=== PATIENT | female | born 1965 | race Caucasian/White ===

== ENCOUNTER 2020-01-27 15:45 | Outpatient (RCR) | payer OTHER, SELFPAY ==
--- NOTE | 2019-11-05 17:14 | PTOPEVAL ---
PHYSICAL THERAPY EVALUATION AND PLAN OF CARE 11-05-19 The PT evaluation was completed today. Plan of treatment is set for 1-2 x/week for 5 weeks, on land and in the water. Thank you for referring Mrs. Mcqueen to [facility]. Please review, sign, date and return this plan of care TERA. I agree with and certify that the following plan of care is medically necessary. Referring Physician Date Attending Provider: Yemi Hull MD *PT Outpatient Evaluation Start: 11/05/19 16:11 Document 11/05/19 16:05 MANOLO (Rec: 11/05/19 17:14 MANOLO [id number]) Therapy Assessment Status Assessment Status Assessment Status Evaluation Outpatient Past Medical History Neurological History Hx Neurological Disorders No Significant History Cardiovascular History Hx Hypertension Yes: med control Respiratory History Hx Respiratory Disorders No Significant History Gastrointestinal History Hx Gastrointestinal Disorders No Significant History Genitourinary History Hx Other Genitourinary Disorders Yes: on meds for bladder control Musculoskeletal History Hx Back Pain Yes Hx Orthopedic Surgery Yes: L TKR '09; Hx Other Musculoskeletal Disorders Yes: B hip pain; 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 Hematological History Hx Hematological Disorders No Significant History Endocrine History Hx Endocrine Disorders No Significant History HEENT History Hx HEENT Disorders No Significant History Integumentary History Hx Skin Disorders No Significant History Pain History Has Past Pain Affected Your Daily Life Yes History of Long-Term Prescription Pain Yes Medication Use (Opiates) Other History Hx Other Medical Conditions Yes: obese, 299# reported by pt Evaluation Information Problem Diagnosis low back pain Onset past year worse Subjective Information gradual increase back and B Query Text:As Reported By Patient/ hip pain; see pain management- Family -they attempted ablation R hip - did not take ; manage with meds; Diagnostic Tests X-Rays For This Problem Yes: severe lumbar spondylosis , dextroscoliosis MRI For This Problem No: not had for over 2 years Previous Treatments Previous Treatments For This Problem in past,PT several years ago; chiropractor- stim,back mobiliz;stim helped Prior Level of Function Activity Level (Last 3 Months) 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
--- NOTE | 2019-12-18 15:47 | PCPTNOTE ---
pt called and canceled today's reevaluation;
--- NOTE | 2019-12-23 16:28 | PCPTNOTE ---
Patient did not show up for scheduled appointment this date.
--- NOTE | 2019-12-27 16:46 | PTOPEVAL ---
PHYSICAL THERAPY RE-EVALUATION AND UPDATED PLAN OF CARE 12-27-2019 Mrs. Mcqueen has received 8 Physical Therapy sessions, from November 05 to today, for the diagnosis of low back pain. She has had 6 sessions in the water for exercises. She reports they have helped her pain and motion, but she has not been here for the past 2 weeks, due to scheduling issues on her part and the therapy staff. Her time frames are limited in availability due to her work and other appointments. Compared to the initial evaluation, she has made slight gains with increased walking tolerance, and increased hip IR and adduction ranges. PT is to continue 2x/week for 5 weeks, for aquatic exercises to increase her strength and mobility of hips, legs and trunk. With education for progression of HEP. Thank you for referring Manasa to [facility]. Please review, sign, date and return this plan of care TERA. I agree with and certify that the following plan of care is medically necessary. Referring Physician Date Attending Provider: Yemi Hull MD *PT Outpatient Re-Evaluation Document 12/27/19 15:45 MANOLO (Rec: 12/27/19 16:46 MANOLO [id number]) Subjective Information Manasa Reports: pain management Query Text:As Reported By Patient/ dr has changed her meds- took Family her off morphine and on hydrocodone- difficulty with the change; last week she was ill with streph throat; really likes the pool- feels like she was moving better and muscles more relaxed; and wants to continue therapy. Pain Assessment Timing of Pain Assessment Timing of Pain Assessment Assessment Pain Scale Pain Scale Used Numeric (1 - 10) Self Report Pain Assessment Bilateral Back Reported Pain Level 10 Pain Frequency Chronic,Continuous Current Pain Intensity 10 Lowest Pain Intensity 10 Greatest Pain Intensity 10 Pain Level Goal 5 Other Alleviating Interventions feels the water decreased her pain, but has not been here for 2 weeks Additional Pain Comments pain has been worse since change in meds; then was ill with streph Pain Score Pain Score 10: Self Report Lower Extremity Range of Motion General Lower Extremity Range of Motion Gross Lower Extremity Range of Motion in sitting:YUOM: hip flexion Comments R 75'/ L 70'; hip IR with knee flex 90': R (-20')/ L (- 10'); hip adduction R 10'/ L 10'; discussed with her to perform supine hip IR/ER and
--- NOTE | 2020-01-15 16:13 | PCPTNOTE ---
Patient did not show up for scheduled appointment this date.
--- NOTE | 2020-01-17 15:39 | PCPTNOTE ---
Patient called & cancelled scheduled appointment this date due to illness
--- NOTE | 2020-01-21 17:47 | PCPTNOTE ---
Patient called & cancelled scheduled appointment this date due to being unable to make it.
--- NOTE | 2020-01-30 14:29 | PCPTNOTE ---
pt called and canceled today's reevaluation; called pt and left message on her phone re: to check on her and see if she wants to continue PT or not, has only been here once since last reeval 12-27-2019;
--- NOTE | 2020-02-20 13:30 | PCPTNOTE ---
PHYSICAL THERAPY DISCHARGE 02-20-2020 Attending Provider: Yemi Hull MD Patient:Nhi Mcqueen Date of :1965 Mrs. Mcqueen has not returned for any further treatments since 01/27/2020, therefore she will be discharged from therapy at this time. The goals were not assessed. Refer to the last reevaluation dated 12/27/19 for her status. She received 1 additional treatment after that reevaluation and did not return for any further treatment. Thank you for referring Nhi to [facility]. Please review, sign, date and return this discharge summary TERA. I have been updated about the patient's current status and I agree with discharge from the above service at this time. Referring Physician Date
== END 2020-01-27 23:59 | disposition home or self-care (01) ==
LOC: ANHPT 15:45
PROVIDERS: PCP Family Medicine; Visit Provider Family Medicine
DX: M54.5 Low back pain (principal)
CPT/HCPCS: 97110; 97113; 97162

== ENCOUNTER 2020-02-18 13:38 | Outpatient (RCR) | payer OTHER, SELFPAY | END 2020-02-24 09:31 | disposition home or self-care (01) | LOC: ANHPT 13:38 | PROVIDERS: PCP Family Medicine; Visit Provider Family Medicine | DX: M54.5 Low back pain (principal) | CPT/HCPCS: 99199 ==

== ENCOUNTER 2022-08-15 09:21 | Emergency (ER) | payer OTHER, SELFPAY ==
--- NOTE | ~2022-08-15 | US_ITS ---
EXAMINATION:US venous doppler LE LT INDICATION:Left lower extremity pain. TECHNIQUE: Multiple grayscale, color flow and Doppler images of the left lower extremity deep venous systems were obtained and reviewed. COMPARISON:No prior studies for comparison. FINDINGS: The common femoral, superficial femoral and popliteal veins demonstrate normal respiratory variation, augmentation and compressibility. Color flow is also seen within the posterior tibial, pe roneal are within normal limits. The gastrocnemius and saphenous veins are not visualized. There is s ubcutaneous edema in the lower extremity. IMPRESSION: 1: No lower extremity deep venous thrombosis. Reviewed, dictated and finalized at location A.
[2022-08-15 09:22] VITALS: BP 98/77; PULSE 91; RESP 16; TEMP 36.5; O2SAT 99
--- NOTE | 2022-08-15 10:30 | ED.SKABFB ---
HPI - Skin/Abscess/Foreign Bdy General Chief complaint: Skin/Abscess/Foreign Body Stated complaint: cellulitis Time Seen by Provider: 08/15/22 09:56 Source: patient Mode of arrival: ambulatory Limitations: no limitations History of Present Illness HPI narrative: Patient is a 57 y/o female who presents to the ED with c/o pain, swelling, redness to her left lower extremity. Patient reports she first noticed mild swelling in her left foot 1 week ago. She has since developed worsening swelling and redness from her left foot up to her upper calf. She reports having diffuse pain in the calf and lower leg. She does mention recently having a wound between her first and second toes. She also reports having intermittent fevers over the last week. Denies any nausea, vomiting, chest pain, difficulty breathing, recent long distance travel, history of DVT/PE, hormonal control use. Related Data Home Medications Medication Instructions Recorded Confirmed solifenacin 10 mg tablet (Vesicare) 10 mg PO DAILY 02/19/21 08/02/22 Allergies Allergy/AdvReac Type Severity Reaction Status Date / Time No Known Allergies Allergy Verified 08/15/22 13:52 Review of Systems Review of Systems: CONSTITUTIONAL: Reports intermittent fevers. CARDIOVASCULAR: Denies chest pain. RESPIRATORY: Denies dyspnea. GASTROINTESTINAL: Denies nausea, vomiting. SKIN: Reports swelling and redness to left lower leg. MUSCULOSKELETAL: Reports pain to left lower leg. NEUROLOGIC: Denies tingling, numbness, or weakness. All systems reviewed & are unremarkable except as noted in HPI and below PMFSH Past Medical History Medical History (Updated 08/16/22 @ 13:22 by Yemi Hull MD) Anxiety Candidiasis of breast Depression Dysuria Essential (primary) hypertension Excessive cerumen in left ear canal Fever blister Frequent urination Mixed hyperlipidemia Total cholesterol 188, triglycerides 93, HDL 54 and LDL 117 on 07/30/2022. Obstructive sleep apnea (adult) (pediatric) Restless legs syndrome Iron studies normal with iron 57, 18% saturation and ferritin 100 on 07/30/2022. Surgical History Surgical History (Updated 08/15/22 @ 10:35 by Leslie Bautista PA-C) History of section History of left knee replacement Family History Family History (Updated 06/18/19 @ 13:56 by DOCTOR UNKNOWN) Father Patient's father is , Onset Age: 88 Mother Family history of congestive heart failure, Onset Age: 77 Social History Social History Smoking status: Never smoker Alcohol intake: former Substance use: current Substance use type: marijuana Exam Narrative: GENERAL: Well appearing, morbidly obese, non-toxic, in no acute distress. HEAD: Normocephalic, atraumatic. NECK: Supple. No adenopathy, no masses. RESPIRATORY: Airway patent, respirations nonlabored. Clear to auscultation bilaterally, no rales, rhonchi, wheezing. CARDIOVASCULAR: Regular rate and rhythm without murmurs, rubs, or gallops. Pedal pulses 2+ and equal bilaterally. MUSCULOSKELETAL: Moves all extremities. Strength/ROM intact without gross deformities. Pitting edema/swelling of left lower leg including foot, ankle, and most of calf. Circumferential inflammation, erythema, warmth, and tenderness to palpation of left lower leg. No obvious wounds on leg or between toes that I could appreciate, though skin is very dry between toes. No redness or significant swelling of right lower extremity. SKIN: Warm, dry, normal color. No rashes. NEURO: A&O X3. Speech clear. Cranial nerves II-XII grossly intact. Steady gait. No ataxic movements. PSYCHIATRIC: Appropriate mood and affect. Normal interaction. Course Vital Signs Vital signs: Vital Signs Temperature 97.7 F 08/15/22 09:22 Pulse Rate 91 08/15/22 09:22 Respiratory Rate 16 08/15/22 09:22 Blood Pressure 98/77 L 08/15/22 09:22 P
[2022-08-15 10:50] VITALS: BP 128/60; PULSE 80; RESP 18; O2SAT 98
[2022-08-15 10:55] LABS: Basophils Absolute Auto 0.1 K/mm3 (0.0-0.1); Basophils Percent Auto 0.5 % (0.2-1.2); Eosinophils Absolute Auto 0.2 K/mm3 (0-0.3); Eosinophils Percent Auto 1.3 % (0-4.4); Hemoglobin 11.1 g/dL (12.0-15.0); Immature Granulocyte Absolute 0.28 K/mm3 (0.00-0.031); Immature Granulocyte Percent A 2.1 % (0-0.5); Lymphocytes Absolute Auto 1.09 K/mm3 (0.9-3.2); Lymphocytes Percent Auto 8.2 % (18.3-44.2); Mean Corpuscular HGB Conc 32.6 g/dl (32-36); Mean Corpuscular Hemoglobin 32.6 pg (26-34); Mean Platelet Volume 9.7 fl (7.4-10.4); Monocytes Absolute Auto 0.9 K/mm3 (0.1-0.6); Monocytes Percent Auto 6.4 % (2.6-8.5); Neutrophils Absolute Auto 10.9 K/mm3 (1.3-6.7); Neutrophils Percent Auto 81.5 % (45.5-73.1); Platelet Count Result 288 k/mm3 (150-375); White Blood Count 13.3 K/mm3 (4.5-10.0)
[2022-08-15 11:58] LABS: INR 1.2; Prothrombin Time 14.5 Seconds (11.1-14.7)
[2022-08-15 11:59] LABS: Alanine Aminotransferase 37 U/L (6-35); Albumin Level 4.4 g/dL (3.5-5.1); Alkaline Phosphatase 179 U/L (38-126); Anion Gap 13 mmol/L (8-16); Aspartate Amino Transferase 38 U/L (14-36); Bilirubin,Total 0.6 mg/dL (0.2-1.3); Blood Urea Nitrogen 23 mg/dL (7-17); Calcium 9.5 mg/dL (8.4-10.2); Carbon Dioxide 27 mmol/L (22-30); Chloride 96 mmol/L (98-107); Estimated CRCL calculation 74 ml/min; Estimated Glomerular Filt Rate 51; Glucose 121 mg/dL (65-110); Partial Thromboplastin Time 35.9 SECONDS (22.3-36.8); Potassium 4.2 mmol/L (3.4-5.0); Sodium 136 mmol/L (137-145)
[2022-08-15 13:54] LABS: Lactic Acid Reflex 0.9 mmol/L (0.7-2.0)
[2022-08-15] MEDS: SODIUM CHLORIDE 0.9% IV 1,000 ML 999 ML IV CONT (14:18)
== END 2022-08-15 16:15 | disposition home or self-care (01) ==
PROVIDERS: Physician Assistant; Emergency Provider Emergency Medicine; PCP Family Medicine
DX: L03.116 Cellulitis of left lower limb (principal); I10 Essential (primary) hypertension; E78.2 Mixed hyperlipidemia; F41.9 Anxiety disorder, unspecified; F32.A Depression, unspecified; G47.33 Obstructive sleep apnea (adult) (pediatric); G25.81 Restless legs syndrome; Z96.652 Presence of left artificial knee joint
CPT/HCPCS: 36415; 80053; 83605; 85025; 85610; 85730; 87040; 93971; 96360; 96361; 99284; J7030

== ENCOUNTER 2022-08-19 15:42 | Inpatient (IN) | payer OTHER, SELFPAY ==
--- NOTE | ~2022-08-19 | US_ITS ---
US venous doppler [facility] DATE: 08/20/2022 16:13 INDICATION: Left lower extremity swelling TECHNIQUE: Real-time and color flow imaging and Doppler analysis of the veins of the left leg COMPARISON: 08/15/2022 venous duplex examination of the left lower extremity FINDINGS: The greater saphenous vein is patent. There is spontaneous and phasic flow and normal augme ntation and color flow signal and normal compression of the left common femoral, femoral, popliteal a nd posterior tibial veins. The peroneal veins are not visualized. IMPRESSION: Peroneal veins are not visualized; cannot exclude peroneal vein thrombosis; otherwise neg ative examination Reviewed, dictated and finalized at Location A. Reviewed, dictated and finalized at location A. IMPRESSION: Peroneal veins are not visualized; cannot exclude peroneal vein thr ombosis; otherwise negative examination
[2022-08-19 16:17] VITALS: BP 131/66; PULSE 86; RESP 20; TEMP 36.3; O2SAT 97
[2022-08-19 17:45] LABS: Basophils Absolute Auto 0.1 K/mm3 (0.0-0.1); Basophils Percent Auto 0.5 % (0.2-1.2); Eosinophils Absolute Auto 0.1 K/mm3 (0-0.3); Eosinophils Percent Auto 1.2 % (0-4.4); Hematocrit 35.1 % (37.0-47.0); Hemoglobin 11.3 g/dL (12.0-15.0); Immature Granulocyte Absolute 0.13 K/mm3 (0.00-0.031); Immature Granulocyte Percent A 1.1 % (0-0.5); Lymphocytes Absolute Auto 1.56 K/mm3 (0.9-3.2); Lymphocytes Percent Auto 13.4 % (18.3-44.2); Mean Corpuscular HGB Conc 32.2 g/dl (32-36); Mean Corpuscular Hemoglobin 32.4 pg (26-34); Mean Corpuscular Volume 100.6 fl (80-100); Mean Platelet Volume 8.6 fl (7.4-10.4); Monocytes Absolute Auto 0.8 K/mm3 (0.1-0.6); Monocytes Percent Auto 7.2 % (2.6-8.5); Neutrophils Absolute Auto 8.9 K/mm3 (1.3-6.7); Neutrophils Percent Auto 76.6 % (45.5-73.1); Platelet Count Result 333 k/mm3 (150-375); Red Blood Count 3.49 M/mm3 (4.2-5.4); Red Cell Distribution Width 12.4 % (11.5-14.5); White Blood Count 11.7 K/mm3 (4.5-10.0)
--- NOTE | 2022-08-19 17:51 | ED.EXTPRO ---
HPI - Extremity Problem General Chief complaint: Extremity Problem,Nontraumatic <Claudia Broussard PA-C - Last Filed: 08/19/22 21:17> Stated complaint: cellulitis left leg <Claudia Broussard PA-C - Last Filed: 08/19/22 21:17> Time Seen by Provider: 08/19/22 17:31 <Claudia Broussard PA-C - Last Filed: 08/19/22 21:17> Source: patient <RAE Bell Last Filed: 08/19/22 21:17> Mode of arrival: ambulatory <RAE Bell Last Filed: 08/19/22 21:17> Limitations: no limitations <Claudia Broussard PA-C - Last Filed: 08/19/22 21:17> History of Present Illness HPI Narrative: This is a 57 year old female that presents to the ER for left lower extremity redness and swelling ongoing over the last 2 weeks. She is evaluated in our ER for this on Monday and started on cephalexin. She has been taking this as prescribed without relief. Denies fevers. <RAE Bell Last Filed: 08/19/22 21:17> Related Data Home medications: Home Medications Medication Instructions Recorded Confirmed solifenacin 10 mg tablet (Vesicare) 10 mg PO DAILY 02/19/21 08/02/22 <Claudia Broussard PA-C - Last Filed: 08/19/22 21:17> Allergies/Adverse reactions: Allergies Allergy/AdvReac Type Severity Reaction Status Date / Time No Known Allergies Allergy Verified 08/15/22 13:52 <RAE Bell Last Filed: 08/19/22 21:17> Review of Systems Review of Systems: CONSTITUTIONAL: Denies fever SKIN: Reports erythema and edema <RAE Bell Last Filed: 08/19/22 21:17> All systems reviewed & are unremarkable except as noted in HPI and below <RAE Bell Last Filed: 08/19/22 21:17> [facility] Past Medical History Medical History: Medical History (Updated 08/19/22 @ 21:17 by Claudia Broussard PA-C) Anxiety Candidiasis of breast Depression Dysuria Essential (primary) hypertension Excessive cerumen in left ear canal Fever blister Frequent urination Mixed hyperlipidemia Total cholesterol 188, triglycerides 93, HDL 54 and LDL 117 on 07/30/2022. Obstructive sleep apnea (adult) (pediatric) Restless legs syndrome Iron studies normal with iron 57, 18% saturation and ferritin 100 on 07/30/2022. <Claudia Broussard PA-C - Last Filed: 08/19/22 21:17> Surgical History Surgical History: Surgical History (Updated 08/15/22 @ 10:35 by Leslie Bautista PA-C) History of section History of left knee replacement <Claudia Broussard PA-C - Last Filed: 08/19/22 21:17> Family History Family History: Family History (Updated 06/18/19 @ 13:56 by DOCTOR UNKNOWN) Father Patient's father is , Onset Age: 88 Mother Family history of congestive heart failure, Onset Age: 77 <Claudia Broussard PA-C - Last Filed: 08/19/22 21:17> Social History Social History: Social History Smoking status: Never smoker Alcohol intake: former Substance use: current Substance use type: marijuana <Claudia Broussard PA-C - Last Filed: 08/19/22 21:17> Exam Narrative: GENERAL: Well-appearing, well-nourished, and in no acute distress. HEAD: Normocephalic, atraumatic. EYES: EOMI. CHEST: Clear to auscultation. No respiratory distress. No wheezes rales or rhonchi HEART: Regular rate and rhythm. No murmur heard. Normal peripheral pulses. EXTREMITIES: Normal range of motion. Left lower extremity with erythema and edema noted just below the knee to the ankle. Normal DP pulse SKIN: Warm, dry, no rash. NEURO: No focal deficits. Alert and oriented x3. 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 I have had [id number] time with the patient. I discussed need for
[2022-08-19 18:08] LABS: Anion Gap 13 mmol/L (8-16); Blood Urea Nitrogen 26 mg/dL (7-17); CRP 23.3 mg/dL (<1.0); Calcium 9.9 mg/dL (8.4-10.2); Carbon Dioxide 24 mmol/L (22-30); Chloride 96 mmol/L (98-107); Estimated CRCL calculation 74 ml/min; Estimated Glomerular Filt Rate 51; Glucose 106 mg/dL (65-110); Potassium 4.8 mmol/L (3.4-5.0); Sodium 133 mmol/L (137-145)
[2022-08-19 18:19] LABS: Erythrocyte Sedimentation Rate 109 mm/hr (0-20)
[2022-08-19 22:00] VITALS: BP 126/56; PULSE 88; RESP 18; TEMP 35.8; O2SAT 95; BMI 54.0
--- NOTE | 2022-08-19 22:01 | ADMGEN ---
This patient, Nhi Mcqueen, was admitted to 3 [facility] Surg Room 309-01. Patient/family oriented to hospital policies and general routines including ID bracelet, bed and alarms, visiting hours, pain management, procedures, bathroom and other care routines, personal items, smoking policy, room service/diet, and visiting hours. Information on how to activate the Rapid Response Team has been discussed. Patient/Family are encouraged to report perceived risks to care and to ask questions if they do not understand what they are told or what they should do.
[2022-08-19 22:10] VITALS: PULSE 88; RESP 18; O2SAT 95
[2022-08-19 22:36] LABS: SARS-CoV-2 RNA PCR Negative
--- NOTE | 2022-08-19 23:30 | PM.IMHP ---
H&P: HPI History of Present Illness Date/Time: 08/19/22 23:30 Chief Complaint: Worsening left leg cellulitis. Narrative: This is a very pleasant 57-year-old female with hypertension who presented to the ED via private vehicle from home for evaluation of worsening left leg cellulitis. Nearly 10 days ago she first noticed mild swelling and redness in her left foot. She was seen in the ED on 08/15/2022 for worsening swelling and redness extending up the calf. She was diagnosed with cellulitis and discharged on cephalexin. Despite compliance with the antibiotic, the area has not improved much and in fact the erythema has spread. She has a pretty consistent pain in the leg, mostly a burning sensation. She has also been running fevers with a T-max of 103? Fahrenheit several days ago. She is now being admitted for IV antibiotics. She has no open wounds in has no history of cellulitis or multi drug-resistant organisms. She is not having any pain in the left knee, which was replaced several years ago. Review of Systems Review of Systems: Twelve systems were reviewed. No cold or flu symptoms. No chest pain or shortness of breath. No cough. No nausea, vomiting, or diarrhea. She has not been eating well due to canker sores on her tongue which started several days prior to the cellulitis. No blisters, rash, or redness anywhere else aside from the leg. No history of venous thromboembolism. She has lost about 40 pounds in the last 2 months, trying to get her BMI down so she can have her hip replaced due to pain related to arthritis. She typically walks with a walker due to the pain. Except as documented, all other systems were reviewed and are negative. [facility] Past Medical History Medical History (Updated 08/20/22 @ 01:41 by Connie Brandt PA-C) Anxiety Chronic anemia Depression Essential (primary) hypertension Mixed hyperlipidemia Total cholesterol 188, triglycerides 93, HDL 54 and LDL 117 on 07/30/2022. Obstructive sleep apnea She does not use a CPAP. Restless legs syndrome Surgical History Surgical History (Updated 08/15/22 @ 10:35 by Leslie Bautista PA-C) History of section History of left knee replacement Family History Family History Father Patient's father is , Onset Age: 88 Mother Family history of congestive heart failure, Onset Age: 77 Social History Social History (Updated 08/20/22 @ 01:33 by Connie Brandt PA-C) Social History: Surrogate medical decision maker: Mike Mcqueen, spouse. Code status: Full code. Smoking status: Never smoker Alcohol intake: current Drinks per week: 3 Substance use: current Substance use type: marijuana Other substance usage details: Occasional used for sleep. Spiritual care concerns: No Meds Home Medications and Allergies Home Medications Medication Instructions Recorded Confirmed Type solifenacin 10 mg tablet (Vesicare) 10 mg PO HS 02/19/21 08/02/22 History escitalopram oxalate 20 mg tablet 20 mg PO DAILY #90 tabs 07/05/21 08/19/22 Rx fluconazole 150 mg tablet See Rx Instructions PO ONCE #3 tabs 08/03/21 08/02/22 Rx (Diflucan) ropinirole 3 mg tablet 3 mg PO BID #180 tabs 03/10/22 08/19/22 Rx irbesartan 300 1 tablet PO DAILY #90 tabs 07/15/22 08/19/22 Rx mg-hydrochlorothiazide 12.5 mg tablet tirzepatide 2.5 mg/0.5 mL 2.5 mg (0.5 mL) subcut WEEKLY 4 08/02/22 08/19/22 Rx subcutaneous pen injector weeks #2 mL (Mounjaro) duloxetine 60 mg capsule,delayed 60 mg PO DAILY 08/19/22 08/19/22 History release mirabegron 50 mg tablet,extended 50 mg PO HS 08/19/22 08/19/22 History release 24 hr (Myrbetriq) naproxen 500 mg tablet (Naprosyn) 500 mg PO BID 08/19/22 08/19/22 History Allergies Allergy/AdvReac Type Severity Reaction Status Date / Time No Known Allergies Allergy Verified 08/15/22 13:52 Vital Signs Vital Signs - 24
[2022-08-20 06:00] VITALS: BP 121/52; PULSE 84; RESP 18; TEMP 36.1; O2SAT 94
[2022-08-20 06:52] LABS: Hematocrit 32.3 % (37.0-47.0); Hemoglobin 10.2 g/dL (12.0-15.0); Mean Corpuscular HGB Conc 31.6 g/dl (32-36); Mean Corpuscular Volume 101.3 fl (80-100); Mean Platelet Volume 8.8 fl (7.4-10.4); Platelet Count Result 312 k/mm3 (150-375); Red Blood Count 3.19 M/mm3 (4.2-5.4); Red Cell Distribution Width 12.4 % (11.5-14.5); White Blood Count 10.1 K/mm3 (4.5-10.0)
[2022-08-20 07:05] LABS: Alanine Aminotransferase 23 U/L (6-35); Alkaline Phosphatase 142 U/L (38-126); Anion Gap 12 mmol/L (8-16); Aspartate Amino Transferase 27 U/L (14-36); Bilirubin,Total 0.4 mg/dL (0.2-1.3); Blood Urea Nitrogen 22 mg/dL (7-17); Calcium 9.3 mg/dL (8.4-10.2); Carbon Dioxide 26 mmol/L (22-30); Chloride 96 mmol/L (98-107); Estimated CRCL calculation 81 ml/min; Estimated Glomerular Filt Rate 57; Glucose 114 mg/dL (65-110); Sodium 134 mmol/L (137-145)
[2022-08-20] MEDS: ACETAMINOPHEN 325 MG TABLET 650 MG PO (08:06)
[2022-08-20] MEDS: ENOXAPARIN 40 MG/0.4 ML SYRINGE SUB-Q (08:07)
[2022-08-20] MEDS: CHLORHEXIDINE GLUCONATE 0.12% ORAL RINSE 473 ML BTL (*BKC) 15 ML SWISH/SPIT ×2 (08:12→17:20)
[2022-08-20] MEDS: ESCITALOPRAM OXALATE 10 MG TABLET 20 MG PO (12:17)
[2022-08-20] MEDS: rOPINIRole HCL 1 MG TABLET 3 MG PO ×2 (12:17→17:19)
[2022-08-20] MEDS: DULoxetine HCL 60 MG CAPSULE.DR PO (12:17)
[2022-08-20] MEDS: hydroCHLOROthiazide 12.5 MG CAPSULE PO (12:18)
[2022-08-20] MEDS: IRBESARTAN 150 MG TABLET 300 MG PO (12:18)
--- NOTE | 2022-08-20 13:28 | PM.IMPN ---
Progress Note: A&P Assessment and Plan (1) Cellulitis of left leg: Code(s): L03.116 - Cellulitis of left lower limb Status: Acute Assessment and Plan: - Continue Vanc and Ancef. - Trend labs and VS. - Blood cultures pending (2) Aphthous ulcer of tongue: Code(s): K12.0 - Recurrent oral aphthae Status: Acute Assessment and Plan: - Continue oral hygiene with mouthwash. (3) Essential (primary) hypertension: Code(s): I10 - Essential (primary) hypertension Status: Acute Assessment and Plan: - Stable BP. COntinue BP meds and monitor BP (4) Chronic anemia: Code(s): D64.9 - Anemia, unspecified Status: Acute Assessment and Plan: - Stable Hgb at 10.2. - Continue to monitor daily labs - No overt bleeding. (5) Restless leg syndrome: Code(s): G25.81 - Restless legs syndrome Status: Acute Assessment and Plan: - Continue Ropinirole. Time Spent With Patient Time with patient: 15 - 25 minutes Subjective Date/time seen: 08/20/22 0905 This pt. was examined at the bedside in interval assessment after being admitted to the hospital for cellulitis of her LLE after failing outpatient therapy. She is receiving Vancomycin and Ancef. She has not had any further fevers. Blood cultures are pending. She has no CP, dyspnea, N/V/D, headache. Review of Systems Review of Systems: All systems reviewed & are unremarkable except as noted in HPI and below Exam Const: General: uncomfortable Other: Obese, female patient sitting up in bed at this time in no acute distress. HENMT: Mouth: Yes moist mucous membranes Eyes: General: appearance normal, both eyes and all related structures Sclera: sclerae normal Pupils: Equal, round and reactive pupils present Neck: Neck: supple and no JVD Lymphatic: lymphadenopathy not noted Resp: Effort & Inspection: normal respiratory effort Auscultation: clear to auscultation bilaterally Cardio: Rate: regular rate Rhythm: regular rhythm Heart sounds: no gallops, no murmurs and no rubs GI: Inspection: non-distended GI Palp: Yes Soft to palpation, No Tenderness to palpation present (GI) and No Guarding due to palpation present (GI) Auscultation: normal bowel sounds Skin: General skin exam: erythema (LLE red and hot to the touch anteriorly ) Lesions: no lesions noted Rashes: no rashes noted Wounds: no wounds Neuro: General: gait normal Speech: normal speech Motor exam (neuro): 5/5 motor strength present throughout and Normal motor muscle tone present throughout Sensory Exam: normal sensation Extrem: General: normal to inspection, no edema and no pedal edema Other: FROM actively and passively without any deficits. Psych: Mental Status: mental status grossly normal Affect: normal affect Objective Data Vital Signs Vital Signs: Vital Signs - 24 hr 08/19/22 16:17 08/19/22 22:00 08/19/22 22:10 Temperature 97.3 F L 96.5 F L Pulse Rate 86 88 88 Respiratory Rate 20 18 18 Blood Pressure 131/66 126/56 L Pulse Oximetry 97 95 95 Oxygen Delivery Room Air Room Air 08/20/22 06:00 08/20/22 08:00 Temperature 97.0 F L Pulse Rate 84 Respiratory Rate 18 Blood Pressure 121/52 L Pulse Oximetry 94 Oxygen Delivery Room Air Intake/Output Intake/Output: Intake & Output 08/17/22 08/18/22 08/19/22 08/20/22 23:59 23:59 23:59 23:59 Intake Total 250 1500 Balance 250 1500 Meds/Results Medications: Active Medications Generic Name Dose Route Start Last Admin Trade Name Bismarkq PRN Reason Stop Dose Admin Acetaminophen 650 mg 08/20/22 01:42 08/20/22 08:06 Acetaminophen 325 Mg Tablet PO 650 mg Q6H PRN Administration Mild Pain (1-3) or Fever Chlorhexidine Gluconate 15 ml 08/20/22 09:00 08/20/22 08:12 Chlorhexidine Gluconate 0.12% Oral Rinse 473 Ml Btl (*Bkc) SWISH/SPIT 15 ml BID FELICITAS Administration Duloxetine HCl 60 mg 08/20/22 11:00 08/20/22 12:17
[2022-08-20 14:00] VITALS: BP 103/43; PULSE 82; RESP 16; TEMP 36.4; O2SAT 93
[2022-08-20] MEDS: ACETAMINOPHEN/CODEINE (*CRX) 300/30 MG TABLET 1 TAB PO ×2 (14:28→22:31)
[2022-08-20] MEDS: MIRABEGRON 50 MG ER TABLET PO (21:21)
[2022-08-20 22:00] VITALS: BP 115/51; PULSE 81; RESP 18; TEMP 36.3; O2SAT 95
[2022-08-21 06:00] VITALS: BP 127/65; PULSE 86; RESP 19; TEMP 36.2; O2SAT 95
[2022-08-21] MEDS: ACETAMINOPHEN/CODEINE (*CRX) 300/30 MG TABLET 1 TAB PO ×3 (06:40→22:12)
[2022-08-21 06:45] LABS: Basophils Absolute Auto 0.1 K/mm3 (0.0-0.1); Basophils Percent Auto 0.6 % (0.2-1.2); Eosinophils Absolute Auto 0.1 K/mm3 (0-0.3); Eosinophils Percent Auto 1.3 % (0-4.4); Hematocrit 34.3 % (37.0-47.0); Lymphocytes Absolute Auto 1.67 K/mm3 (0.9-3.2); Lymphocytes Percent Auto 16.4 % (18.3-44.2); Mean Corpuscular HGB Conc 32.1 g/dl (32-36); Mean Corpuscular Hemoglobin 32.2 pg (26-34); Mean Corpuscular Volume 100.3 fl (80-100); Mean Platelet Volume 8.7 fl (7.4-10.4); Monocytes Absolute Auto 0.8 K/mm3 (0.1-0.6); Monocytes Percent Auto 7.5 % (2.6-8.5); Neutrophils Absolute Auto 7.5 K/mm3 (1.3-6.7); Neutrophils Percent Auto 73.2 % (45.5-73.1); Platelet Count Result 390 k/mm3 (150-375); Red Blood Count 3.42 M/mm3 (4.2-5.4); Red Cell Distribution Width 12.3 % (11.5-14.5); White Blood Count 10.2 K/mm3 (4.5-10.0)
[2022-08-21 07:02] LABS: Alanine Aminotransferase 27 U/L (6-35); Albumin Level 4.3 g/dL (3.5-5.1); Alkaline Phosphatase 159 U/L (38-126); Anion Gap 14 mmol/L (8-16); Aspartate Amino Transferase 40 U/L (14-36); Bilirubin,Total 0.6 mg/dL (0.2-1.3); Blood Urea Nitrogen 23 mg/dL (7-17); Calcium 9.8 mg/dL (8.4-10.2); Carbon Dioxide 24 mmol/L (22-30); Chloride 97 mmol/L (98-107); Estimated CRCL calculation 81 ml/min; Estimated Glomerular Filt Rate 57; Glucose 108 mg/dL (65-110); Magnesium 2.2 mg/dL (1.6-2.3); Potassium 4.3 mmol/L (3.4-5.0); Sodium 135 mmol/L (137-145)
[2022-08-21] MEDS: CHLORHEXIDINE GLUCONATE 0.12% ORAL RINSE 473 ML BTL (*BKC) 15 ML SWISH/SPIT ×2 (08:58→17:49)
[2022-08-21] MEDS: ENOXAPARIN 40 MG/0.4 ML SYRINGE SUB-Q (08:59)
[2022-08-21] MEDS: hydroCHLOROthiazide 12.5 MG CAPSULE PO (08:59)
[2022-08-21] MEDS: FLUTICASONE PROPIONATE 0.05% NA SPR 16 GM BTL (*BKC) 2 SPRAY NASAL (08:59)
[2022-08-21] MEDS: IRBESARTAN 150 MG TABLET 300 MG PO (09:00)
[2022-08-21] MEDS: ESCITALOPRAM OXALATE 10 MG TABLET 20 MG PO (09:00)
[2022-08-21] MEDS: rOPINIRole HCL 1 MG TABLET 3 MG PO ×2 (09:00→21:16)
[2022-08-21] MEDS: DULoxetine HCL 60 MG CAPSULE.DR PO (09:00)
--- NOTE | 2022-08-21 12:04 | PM.IMPN ---
Progress Note: A&P Assessment and Plan (1) Cellulitis of left leg: Code(s): L03.116 - Cellulitis of left lower limb Status: Acute Assessment and Plan: - Continue Vanc and Ancef. - Trend labs and VS. - Blood cultures pending - There is noted interval improvement. Continue to monitor labs, vital signs and perform interval assessment left lower extremity. (2) Aphthous ulcer of tongue: Code(s): K12.0 - Recurrent oral aphthae Status: Acute Assessment and Plan: - Continue oral hygiene with mouthwash. - Patient reports this issue is resolving nicely. (3) Essential (primary) hypertension: Code(s): I10 - Essential (primary) hypertension Status: Acute Assessment and Plan: - Stable BP. COntinue BP meds and monitor BP (4) Chronic anemia: Code(s): D64.9 - Anemia, unspecified Status: Acute Assessment and Plan: - Stable Hgb at 10.2. - Continue to monitor daily labs - No overt bleeding. (5) Restless leg syndrome: Code(s): G25.81 - Restless legs syndrome Status: Acute Assessment and Plan: - Continue Ropinirole. Time Spent With Patient Time with patient: 15 - 25 minutes Subjective Date/time seen: 08/21/22 0915 This patient was examined at the bedside today in interval assessment. She is evaluated for interval change of her cellulitis of her left lower extremity. Patient reports today that she feels as though it is getting better. She reports that she has less pain and she believes the redness is starting to recede. She has been afebrile over the evening. Toradol was added to her medication regimen for a total of 4 doses for additional pain control. She has no new complaints of chest pain, dyspnea, nausea, vomiting, diarrhea, headache, lightheadedness, dizziness, fatigue or urinary complaints. She remains on vanc and cefepime blood cultures are preliminarily negative. Review of Systems Review of Systems: All systems reviewed & are unremarkable except as noted in HPI and below Exam Const: General: comfortable and no acute distress Other: Obese, female patient sitting up in bed at this time in no acute distress. HENMT: Mouth: Yes moist mucous membranes Eyes: General: appearance normal, both eyes and all related structures Sclera: sclerae normal Pupils: Equal, round and reactive pupils present Neck: Neck: supple and no JVD Lymphatic: lymphadenopathy not noted Resp: Effort & Inspection: normal respiratory effort Auscultation: clear to auscultation bilaterally Cardio: Rate: regular rate Rhythm: regular rhythm Heart sounds: no gallops, no murmurs and no rubs GI: Inspection: non-distended Auscultation: normal bowel sounds Skin: General skin exam: erythema (LLE red and hot to the touch anteriorly ) Lesions: no lesions noted Rashes: no rashes noted Wounds: no wounds Other: The amount of erythema is drastically decreased as compared to yesterday. Neuro: General: gait normal Cranial nerves: Yes Equal, round and reactive pupils present Speech: normal speech Motor exam (neuro): 5/5 motor strength present throughout and Normal motor muscle tone present throughout Sensory Exam: normal sensation Extrem: General: normal to inspection, no edema and no pedal edema Other: FROM actively and passively without any deficits. Psych: Mental Status: mental status grossly normal Affect: normal affect Objective Data Vital Signs Vital Signs: Vital Signs - 24 hr 08/20/22 14:00 08/20/22 22:00 08/21/22 06:00 Temperature 97.5 F L 97.4 F L 97.2 F L Pulse Rate 82 81 86 Respiratory Rate 16 18 19 Blood Pressure 103/43 L 115/51 L 127/65 Pulse Oximetry 93 95 95 Oxygen Delivery 08/21/22 08:00 Temperature Pulse Rate Respiratory Rate Blood Pressure Pulse Oximetry Oxygen Delivery Room Air Intake/Output Intake/Output: Intake & Output 08/18/22 08/19/22 08/20/22 08/21/22 23:59 23:59 23:59 23:59 Inta
[2022-08-21] MEDS: KETOROLAC 30 MG/ML VIAL (*BKC) IV PUSH ×2 (15:13→22:13)
[2022-08-21 15:55] VITALS: BP 108/53; PULSE 77; RESP 16; TEMP 36.4; O2SAT 95
[2022-08-21] MEDS: MIRABEGRON 50 MG ER TABLET PO (21:15)
[2022-08-21 22:00] VITALS: BP 125/62; PULSE 81; RESP 18; TEMP 37; O2SAT 95
[2022-08-22 05:56] VITALS: BP 134/71; PULSE 78; RESP 17; TEMP 36.7; O2SAT 95
[2022-08-22] MEDS: KETOROLAC 30 MG/ML VIAL (*BKC) IV PUSH (06:23)
[2022-08-22] MEDS: ACETAMINOPHEN/CODEINE (*CRX) 300/30 MG TABLET 1 TAB PO ×3 (06:26→21:34)
[2022-08-22] MEDS: rOPINIRole HCL 1 MG TABLET 3 MG PO ×2 (08:54→21:34)
[2022-08-22] MEDS: hydroCHLOROthiazide 12.5 MG CAPSULE PO (08:54)
[2022-08-22] MEDS: IRBESARTAN 150 MG TABLET 300 MG PO (08:54)
[2022-08-22] MEDS: ENOXAPARIN 40 MG/0.4 ML SYRINGE SUB-Q (08:55)
[2022-08-22] MEDS: DULoxetine HCL 60 MG CAPSULE.DR PO (08:55)
[2022-08-22] MEDS: ESCITALOPRAM OXALATE 10 MG TABLET 20 MG PO (08:55)
[2022-08-22] MEDS: CHLORHEXIDINE GLUCONATE 0.12% ORAL RINSE 473 ML BTL (*BKC) 15 ML SWISH/SPIT ×2 (08:56→17:30)
[2022-08-22 11:06] LABS: Basophils Absolute Auto 0.1 K/mm3 (0.0-0.1); Basophils Percent Auto 0.8 % (0.2-1.2); Eosinophils Absolute Auto 0.1 K/mm3 (0-0.3); Eosinophils Percent Auto 1.5 % (0-4.4); Hematocrit 31.9 % (37.0-47.0); Hemoglobin 10.2 g/dL (12.0-15.0); Immature Granulocyte Absolute 0.06 K/mm3 (0.00-0.031); Immature Granulocyte Percent A 0.7 % (0-0.5); Lymphocytes Absolute Auto 1.25 K/mm3 (0.9-3.2); Lymphocytes Percent Auto 14.4 % (18.3-44.2); Mean Corpuscular Hemoglobin 32.3 pg (26-34); Mean Corpuscular Volume 100.9 fl (80-100); Monocytes Absolute Auto 0.7 K/mm3 (0.1-0.6); Monocytes Percent Auto 7.8 % (2.6-8.5); Neutrophils Absolute Auto 6.5 K/mm3 (1.3-6.7); Neutrophils Percent Auto 74.8 % (45.5-73.1); Platelet Count Result 345 k/mm3 (150-375); Red Blood Count 3.16 M/mm3 (4.2-5.4); Red Cell Distribution Width 12.2 % (11.5-14.5); White Blood Count 8.7 K/mm3 (4.5-10.0)
[2022-08-22 11:22] LABS: Alanine Aminotransferase 25 U/L (6-35); Albumin Level 3.8 g/dL (3.5-5.1); Alkaline Phosphatase 126 U/L (38-126); Anion Gap 12 mmol/L (8-16); Aspartate Amino Transferase 33 U/L (14-36); Bilirubin,Total 0.4 mg/dL (0.2-1.3); Blood Urea Nitrogen 27 mg/dL (7-17); Calcium 9.1 mg/dL (8.4-10.2); Carbon Dioxide 24 mmol/L (22-30); Chloride 94 mmol/L (98-107); Estimated CRCL calculation 81 ml/min; Estimated Glomerular Filt Rate 57; Glucose 106 mg/dL (65-110); Magnesium 2.2 mg/dL (1.6-2.3); Potassium 4.1 mmol/L (3.4-5.0); Sodium 130 mmol/L (137-145)
--- NOTE | 2022-08-22 11:34 | PM.IMPN ---
Progress Note: A&P Assessment and Plan (1) Cellulitis of left leg: Code(s): L03.116 - Cellulitis of left lower limb Status: Acute Assessment and Plan: - Continue Vanc and Ancef. - Trend labs and VS. - Blood cultures pending - There is noted interval improvement. Continue to monitor labs, vital signs and perform interval assessment left lower extremity. (2) Aphthous ulcer of tongue: Code(s): K12.0 - Recurrent oral aphthae Status: Acute Assessment and Plan: - Continue oral hygiene with mouthwash. - Patient reports this issue is resolving nicely. (3) Essential (primary) hypertension: Code(s): I10 - Essential (primary) hypertension Status: Acute Assessment and Plan: - Stable BP. Continue BP meds and monitor BP (4) Chronic anemia: Code(s): D64.9 - Anemia, unspecified Status: Acute Assessment and Plan: - Increasing. Today to 11.0. - Continue to monitor daily labs - No overt bleeding. (5) Restless leg syndrome: Code(s): G25.81 - Restless legs syndrome Status: Acute Assessment and Plan: - Continue Ropinirole. Time Spent With Patient Time with patient: 15 - 25 minutes Subjective Date/time seen: 08/22/22 0830 This pt. was examined at the bedside today in interval assessment. She states she feels better today and her leg feels better overall and the redness is starting to go away. She has not had any fevers and she has no other new symptoms. Blood cultures are still negative. Review of Systems Review of Systems: All systems reviewed & are unremarkable except as noted in HPI and below Exam Const: General: comfortable, no acute distress and uncomfortable Other: Obese, female patient sitting up in bed at this time in no acute distress. HENMT: Mouth: Yes moist mucous membranes Eyes: General: appearance normal, both eyes and all related structures Sclera: sclerae normal Pupils: Equal, round and reactive pupils present Neck: Neck: supple and no JVD Lymphatic: lymphadenopathy not noted Resp: Effort & Inspection: normal respiratory effort Auscultation: clear to auscultation bilaterally Cardio: Rate: regular rate Rhythm: regular rhythm Heart sounds: no gallops, no murmurs and no rubs GI: Inspection: non-distended Auscultation: normal bowel sounds Skin: General skin exam: erythema (LLE red and hot to the touch anteriorly ) Lesions: no lesions noted Rashes: no rashes noted Wounds: no wounds Other: Erythema is the same as it was yesterday. Neuro: General: gait normal Cranial nerves: Yes Equal, round and reactive pupils present Speech: normal speech Motor exam (neuro): 5/5 motor strength present throughout and Normal motor muscle tone present throughout Sensory Exam: normal sensation Extrem: General: normal to inspection, no edema and no pedal edema Other: FROM actively and passively without any deficits. Psych: Mental Status: mental status grossly normal Affect: normal affect Objective Data Vital Signs Vital Signs: Vital Signs - 24 hr 08/21/22 15:55 08/21/22 22:00 08/22/22 05:56 Temperature 97.6 F 98.6 F 98.0 F Pulse Rate 77 81 78 Respiratory Rate 16 18 17 Blood Pressure 108/53 L 125/62 134/71 Pulse Oximetry 95 95 95 Intake/Output Intake/Output: Intake & Output 08/19/22 08/20/22 08/21/22 08/22/22 23:59 23:59 23:59 23:59 Intake Total 250 3370 3390 170 Output Total 700 200 Balance 250 2670 3390 -30 Meds/Results Medications: Active Medications Generic Name Dose Route Start Last Admin Trade Name Freq PRN Reason Stop Dose Admin Acetaminophen 650 mg 08/20/22 01:42 08/20/22 08:06 Acetaminophen 325 Mg Tablet PO 650 mg Q6H PRN Administration Mild Pain (1-3) or Fever Acetaminophen/Codeine Phosphate 1 tab 08/20/22 13:54 08/22/22 06:26 Acetaminophen/Codeine (*Crx) 300/30 Mg Tablet PO 1 tab Q8H PRN Administration pain 4-10 Chlorhexidine Glu
[2022-08-22 14:00] VITALS: BP 125/73; PULSE 78; RESP 17; TEMP 36.2; O2SAT 97
[2022-08-22 21:32] VITALS: BP 131/52; PULSE 83; RESP 16; TEMP 36.5; O2SAT 97
[2022-08-22] MEDS: MIRABEGRON 50 MG ER TABLET PO (21:35)
[2022-08-23 06:00] VITALS: BP 117/43; PULSE 82; RESP 14; TEMP 36.2; O2SAT 96
[2022-08-23 08:00] VITALS: PULSE 82; RESP 14; O2SAT 96
[2022-08-23] MEDS: rOPINIRole HCL 1 MG TABLET 3 MG PO ×2 (08:55→20:32)
[2022-08-23] MEDS: DULoxetine HCL 60 MG CAPSULE.DR PO (08:55)
[2022-08-23] MEDS: ESCITALOPRAM OXALATE 10 MG TABLET 20 MG PO (08:55)
[2022-08-23] MEDS: hydroCHLOROthiazide 12.5 MG CAPSULE PO (08:55)
[2022-08-23] MEDS: IRBESARTAN 150 MG TABLET 300 MG PO (08:55)
[2022-08-23] MEDS: FLUTICASONE PROPIONATE 0.05% NA SPR 16 GM BTL (*BKC) 2 SPRAY NASAL (08:56)
[2022-08-23] MEDS: CHLORHEXIDINE GLUCONATE 0.12% ORAL RINSE 473 ML BTL (*BKC) 15 ML SWISH/SPIT ×2 (08:56→18:00)
[2022-08-23] MEDS: ENOXAPARIN 40 MG/0.4 ML SYRINGE SUB-Q (08:56)
[2022-08-23] MEDS: ACETAMINOPHEN/CODEINE (*CRX) 300/30 MG TABLET 1 TAB PO ×2 (09:16→18:03)
[2022-08-23 10:44] LABS: Hematocrit 30.5 % (37.0-47.0); Hemoglobin 9.9 g/dL (12.0-15.0)
[2022-08-23 10:54] LABS: Anion Gap 11 mmol/L (8-16); Blood Urea Nitrogen 21 mg/dL (7-17); Calcium 9.2 mg/dL (8.4-10.2); Carbon Dioxide 26 mmol/L (22-30); Chloride 95 mmol/L (98-107); Estimated CRCL calculation 89 ml/min; Estimated Glomerular Filt Rate > 60; Glucose 126 mg/dL (65-110); Potassium 3.7 mmol/L (3.4-5.0); Sodium 132 mmol/L (137-145)
[2022-08-23 14:00] VITALS: BP 124/56; PULSE 82; RESP 20; TEMP 36.7; O2SAT 100
--- NOTE | 2022-08-23 15:53 | PM.IMPN ---
Progress Note: A&P Assessment and Plan (1) Cellulitis of left leg: Code(s): L03.116 - Cellulitis of left lower limb Status: Acute Assessment and Plan: Improving. Continue Vanc and Ancef. leukocytosis has resolved Blood cultures pending, negative to date continue to monitor. Possible discharge tomorrow on PO antibiotics if continued improvement (2) Aphthous ulcer of tongue: Code(s): K12.0 - Recurrent oral aphthae Status: Acute Assessment and Plan: Reports overall improvement Continue oral hygiene with mouthwash. (3) Essential (primary) hypertension: Code(s): I10 - Essential (primary) hypertension Status: Acute Assessment and Plan: Blood pressures reviewed and have been stable. Last BP 124/56 continue hydrochlorothiazide monitor BP trends (4) Chronic anemia: Code(s): D64.9 - Anemia, unspecified Status: Acute Assessment and Plan: H&H remaining relatively stable. No evidence of active bleeding Continue to monitor H&H (5) Restless leg syndrome: Code(s): G25.81 - Restless legs syndrome Status: Acute Assessment and Plan: No acute issues. Continue Ropinirole Subjective Date/time seen: 08/23/22 15:53 Interval history: Date of service: 08/23/2022 Nhi Mcqueen is a 57-year-old female with a history of CHRIS, hypertension, hyperlipidemia, chronic anemia, and restless leg syndrome who is seen in follow-up for cellulitis of the left lower extremity. She is feeling better today. States that her pain has improved. Also notes some improvement in redness, swelling, tightness, and warmth. Currently rates her pain as 2/10. She is able to bear weight with a walker. She states she needs to use the walker because of bilateral hip pain in notes that this is unrelated to left lower extremity. Denies numbness or tingling of extremities. She denies fevers or chills. No abdominal pain, nausea, vomiting, shortness breath, cough, chest pain. Review of Systems Review of Systems: All systems reviewed & are unremarkable except as noted in HPI and below Exam Narrative: General: Obese, well-appearing 57-year-old female, sitting up in bed , comfortable, NARD Neuro: awake, alert and oriented x4, speech clear, no focal neuro deficits noted HEENMT: normocephalic, atraumatic, EOMI, sclerae anicteric Respiratory: clear to auscultation bilaterally, nonlabored breathing Cardio: regular rate, regular rhythm with S1-S2 Abdomen: nondistended, normoactive bowel sounds, soft, nontender to palpation Extremities: left lower extremity is edematous with erythema mostly on the anterolateral surface of the bazzi, erythema has decreased from marked border, slightly warm to palpation, RLE no edema, erythema, or tenderness to palpation, DP pulses 2+ bilaterally, able to wiggle toes bilaterally Skin: no rashes or lesions, warm and dry Psych: appropriate mood and affect, judgment and insight intact Objective Data Vital Signs Vital Signs: Vital Signs - 24 hr 08/22/22 21:32 08/23/22 06:00 08/23/22 08:00 Temperature 97.7 F 97.1 F L Pulse Rate 83 82 82 Respiratory Rate 16 14 14 Blood Pressure 131/52 L 117/43 L Pulse Oximetry 97 96 96 Oxygen Delivery Room Air 08/23/22 14:00 Temperature 98.0 F Pulse Rate 82 Respiratory Rate 20 Blood Pressure 124/56 L Pulse Oximetry 100 Oxygen Delivery Intake/Output Intake/Output: Intake & Output 08/20/22 08/21/22 08/22/22 08/23/22 23:59 23:59 23:59 23:59 Intake Total 3370 3390 2850 1370 Output Total 700 1500 500 Balance 2670 3390 1350 870 Meds/Results Medications: Active Medications Generic Name Dose Route Start Last Admin Trade Name Freq PRN Reason Stop Dose Admin Acetaminophen 650 mg 08/20/22 01:42 08/20/22 08:06 Acetaminophen 325 Mg Tablet PO 650 mg Q6H PRN Administration Mild Pain (1-3) or Fever Acetaminophen/Codeine Phosphat
[2022-08-23] MEDS: MIRABEGRON 50 MG ER TABLET PO (20:32)
[2022-08-23 22:00] VITALS: BP 118/80; PULSE 84; RESP 20; TEMP 35.9; O2SAT 100
--- NOTE | 2022-08-24 04:55 | PC.NURSE ---
Pt here for cellulitis of left leg. Affected area appears to be decreasing in size. Pt has been up with walker to the bathroom. Pt reports that she feels like her back is going out and is requesting Orphenadrine like she uses at home. Dr Delgado was notified and gave telephone order for pts home dose of Orphenadrine. Pt showed me previous order that had been filled. Order placed waiting on pharmacy to send up. Will continue to monitor pt.
[2022-08-24 06:00] VITALS: BP 136/55; PULSE 82; RESP 20; TEMP 36.1; O2SAT 99
[2022-08-24 06:20] LABS: Hematocrit 31.3 % (37.0-47.0); Mean Corpuscular HGB Conc 31.9 g/dl (32-36); Mean Corpuscular Hemoglobin 32.3 pg (26-34); Mean Platelet Volume 8.7 fl (7.4-10.4); Platelet Count Result 369 k/mm3 (150-375); Red Cell Distribution Width 12.1 % (11.5-14.5); White Blood Count 6.4 K/mm3 (4.5-10.0)
[2022-08-24 06:27] LABS: Anion Gap 13 mmol/L (8-16); Blood Urea Nitrogen 19 mg/dL (7-17); CRP 7.9 mg/dL (<1.0); Calcium 9.4 mg/dL (8.4-10.2); Carbon Dioxide 30 mmol/L (22-30); Chloride 93 mmol/L (98-107); Estimated CRCL calculation 89 ml/min; Estimated Glomerular Filt Rate > 60; Glucose 107 mg/dL (65-110); Potassium 3.6 mmol/L (3.4-5.0); Sodium 136 mmol/L (137-145)
[2022-08-24 08:00] VITALS: PULSE 82; RESP 20; O2SAT 99
[2022-08-24] MEDS: DULoxetine HCL 60 MG CAPSULE.DR PO (08:37)
[2022-08-24] MEDS: IRBESARTAN 150 MG TABLET 300 MG PO (08:37)
[2022-08-24] MEDS: ORPHENADRINE CITRATE 100 MG TABLET.ER PO (08:38)
[2022-08-24] MEDS: FLUTICASONE PROPIONATE 0.05% NA SPR 16 GM BTL (*BKC) 2 SPRAY NASAL (08:38)
[2022-08-24] MEDS: ENOXAPARIN 40 MG/0.4 ML SYRINGE SUB-Q (08:38)
[2022-08-24] MEDS: ESCITALOPRAM OXALATE 10 MG TABLET 20 MG PO (08:38)
[2022-08-24] MEDS: hydroCHLOROthiazide 12.5 MG CAPSULE PO (08:38)
[2022-08-24] MEDS: rOPINIRole HCL 1 MG TABLET 3 MG PO (08:38)
[2022-08-24] MEDS: CHLORHEXIDINE GLUCONATE 0.12% ORAL RINSE 473 ML BTL (*BKC) 15 ML SWISH/SPIT (08:39)
--- NOTE | 2022-08-24 12:50 | PM.DS ---
DS: Admitting Diagnosis Discharge Date 08/24/2022 Admitting Diagnosis Cellulitis DS: Discharge Diagnosis Discharge Diagnosis (1) Cellulitis of left leg: Code(s): L03.116 - Cellulitis of left lower limb Status: Acute Assessment and Plan: Patient presented with erythema and edema of the left lower lung. She had been evaluated in the ED 4 days prior and had been taking Keflex at home with no improvement. She was treated with vancomycin and Ancef during admission. She had slow clinical improvement. She will continue p.o. doxycycline for MRSA coverage as an outpatient to complete a total of 10 days of antibiotic therapy Leukocytosis resolved and CRP with marked improvement Blood cultures negative Patient instructed regarding need for close outpatient monitoring and follow up with PCP to ensure resolution. (2) Essential (primary) hypertension: Code(s): I10 - Essential (primary) hypertension Status: Acute Assessment and Plan: Blood pressures stable. continue hydrochlorothiazide (3) Chronic anemia: Code(s): D64.9 - Anemia, unspecified Status: Acute Assessment and Plan: H&H remained stable. No evidence of active bleeding (4) Restless leg syndrome: Code(s): G25.81 - Restless legs syndrome Status: Acute Assessment and Plan: No acute issues. Continue Ropinirole DS: Summary Hospital Course Hospital Course: date of admission: 08/19/2022 date of discharge: 08/24/2022 Nhi Mcqueen is a 57-year-old female with a history of CHRIS, hypertension, hyperlipidemia, chronic anemia, and restless leg syndrome who presented to the emergency department on 08/19/2022 with complaints of left lower extremity redness swelling worsening over the past 2 weeks. she had been taking Keflex as an outpatient for 4 days with no improvement. On presentation to the ED, vital signs were stable, patient afebrile, WBC 11.7, creatinine 1.1, CRP 23.3 additional laboratory workup unremarkable. Patient was admitted to the hospitalist service for further evaluation and management. Please see above for further details. She had symptomatic improvement with IV vancomycin and Ancef and will continue with p.o. doxycycline as an outpatient. She will follow-up with her primary care provider in 1 week for monitoring to ensure continued improvement / resolution of infection. Patient was feeling back to her usual state of health and was eager for discharge home. Discussed worrisome signs and symptoms for which to return and she was educated on medications. Patient was discharged in hemodynamically stable condition on 08/24/2022 Status at Discharge Functional status at discharge: uses cane/walker Overall status at discharge: patient is progressing back to baseline Time Spent with Patient Time attestation: Total time spent providing and/or coordinating discharge services: 40 minutes Time spent: Greater than 30 minutes Exam Narrative: General: Obese, well-appearing 57-year-old female, sitting up in bed , comfortable, NARD Neuro: awake, alert and oriented x4, speech clear, no focal neuro deficits noted HEENMT: normocephalic, atraumatic, EOMI, sclerae anicteric Respiratory: clear to auscultation bilaterally, nonlabored breathing Cardio: regular rate, regular rhythm with S1-S2 Abdomen: nondistended, normoactive bowel sounds, soft, nontender to palpation Extremities: left lower extremity with 2+ edema, improved erythema mostly on the anterolateral surface of the bazzi (area of erythema decreased from marked border) no warmth to palpation, RLE no edema, erythema, or tenderness to palpation, DP pulses 2+ bilaterally, able to wiggle toes bilaterally Skin: no rashes or lesions, warm and dry Psych: appropriate mood and affect, judgment and insight intact DS: Data Data Completed and Pending Labs on day of discharge: Labs from last 24 hours 08/24/22 08/24/22 05:21 05:
[2022-08-24 14:00] VITALS: BP 131/50; PULSE 98; RESP 20; TEMP 36.5; O2SAT 98
== END 2022-08-24 16:50 | disposition home or self-care (01) | DRG 603 ==
LOC: ANHED 17:41 → ANH3MEDSUR 20:32
PROVIDERS: Nurse Practitioner Adult Health; Physician Assistant; Admitting Provider Internal Medicine; Emergency Provider Emergency Medicine; PCP Family Medicine; Visit Provider Family Medicine
DX: L03.116 Cellulitis of left lower limb (principal); Z68.43 Body mass index [BMI] 50.0-59.9, adult; D64.9 Anemia, unspecified; E78.2 Mixed hyperlipidemia; E66.9 Obesity, unspecified; F41.9 Anxiety disorder, unspecified; F32.A Depression, unspecified; G25.81 Restless legs syndrome; G47.33 Obstructive sleep apnea (adult) (pediatric); I10 Essential (primary) hypertension; K12.0 Recurrent oral aphthae; M25.552 Pain in left hip; M25.551 Pain in right hip; Z96.652 Presence of left artificial knee joint; Z28.21 Immunization not carried out because of patient refusal; Z20.822 Contact with and (suspected) exposure to COVID-19
CPT/HCPCS: 36415; 80048; 80053; 80202; 83735; 85014; 85018; 85025; 85027; 85652; 86140; 87040; 93971; 96365; 96366; 96367; 96372; 96374; 96375; 96376; 99285; A4248; A9270; C9803; G0378; J0690; J1650; J1885; J3370; U0003; U0005

== ENCOUNTER 2023-09-13 08:34 | Outpatient (CLI) | payer OTHER, SELFPAY ==
--- NOTE | 2023-10-04 08:00 | WPDHOMESLEEP ---
Sleep Study - Home Unattended Date of Study: 09/13/23 Ordering Provider: Yemi Hull MD Interpreting Provider: Erika Golden MD Home Sleep Study Type: Watch PAT Height: 1.68 m Weight: 153.768 kg Body Mass Index: 54.7 Neck Circumference (inches): 17 [place]: 23 Reason for Sleep Study Daytime hypersomnia Known obstructive sleep apnea, does not currently use CPAP Sleep History Nhi Mcqueen is a 58-year-old female with history of hypertension, hyperlipidemia, restless leg syndrome, anxiety, depression, chronic pain, and morbid obesity who underwent a home sleep test for evaluation of daytime hypersomnia. She takes Requip 3mg BID for restless leg syndrome. She constantly awakens from sleep short of breath. She constantly awakens at night with heartburn, belching or cough. She constantly snores and constantly snores loudly enough that others complain. She constantly has trouble sleeping when she has a cold. She constantly suddenly wakes up gasping for breath during the night. She constantly has breathing problems at night. She frequently sweats excessively at night. She frequently notices her heart pounding or beating irregularly during the night. She occasionally falls asleep during the day. She never falls asleep while driving. She never experiences loss of muscle tone with strong emotion. She never feels paralyzed on waking or falling asleep. She frequently experiences vivid dreams upon waking or falling asleep. She does not feel afraid of going to sleep. She occasionally has nightmares. She frequently recalls her dreams. She frequently has thoughts racing through her mind. She frequently feels sad or depressed. She frequently feels anxiety or worry about things. She frequently notices parts of her body jerk. She frequently kicks during the night. She constantly feels crawling or aching feelings in her legs. She constantly feels leg pain at night. She frequently grinds her teeth during sleep and constantly has morning jaw pain. She frequently feels bothered by pain during the day and is frequently awakened by pain during the night. She frequently wakes up feeling stiff, sore, and achy in the morning. She frequently wakes with pain in her neck, spine, or joints. Normal bedtime is around midnight on the weekdays and same on the weekends. States she does not take long to fall asleep. She states she gets anywhere from 2 to 6 hours of sleep per night. Her wake up time is around 5am on the weekdays and between 6 to 7am on the weekends. She typically wakes up around 3 to 4 times per night, awake 30 to 60 minutes and she will go to the bathroom, get on her iPad. She takes naps during the day, and a short nap lasting 10-15 minutes may be refreshing. She is drowsy for 2 hours after waking. Habits: Never tobacco smoker. Drinks about 1 to 2 caffeinated beverages per day. Alcohol use is 1 to 2 drinks per day. She uses marijuana for chronic pain. ON LICENSE OF [facility] Past Medical History Medical History Cellulitis of right leg Chronic anemia hemoglobin 12.5 with iron 84 with 25% saturation ferritin 141 on 03/25/2023. Essential (primary) hypertension Mixed hyperlipidemia Total cholesterol 188, triglycerides 93, HDL 54 and LDL 117 on 07/30/2022. Cholesterol 256, triglycerides 124, HDL 64, LDL 170 with ratio 4.0 on 03/25/2023. Morbid obesity with BMI of 50.0-59.9, adult Obstructive sleep apnea She does not use a CPAP. Wound of right leg Surgical History Surgical History History of section History of left knee replacement Family History Family History Father No problems noted. Mother Family history of congestive heart failure, Onset Age: 77 Social History Social History Social History: S
[2023-10-04 08:04] VITALS: BMI 54.7
== END 2023-09-15 12:52 | disposition home or self-care (01) ==
PROVIDERS: PCP Family Medicine; Visit Provider Family Medicine
DX: G47.10 Hypersomnia, unspecified (principal); G47.33 Obstructive sleep apnea (adult) (pediatric); G25.81 Restless legs syndrome
CPT/HCPCS: 95800

== ENCOUNTER 2023-09-27 07:10 | Outpatient (RCR) | payer OTHER, SELFPAY ==
[2023-09-04 12:48] VITALS: BMI 56.6
== END 2023-12-03 23:59 | disposition home or self-care (01) ==
LOC: ANHWOC 07:10
PROVIDERS: PCP Family Medicine; Visit Provider Nurse Practitioner Family
DX: S81.801D Unspecified open wound, right lower leg, subsequent encounter (principal); L03.115 Cellulitis of right lower limb
CPT/HCPCS: 29581; A9270